=== PATIENT | male | born 1935 | race African-American/Black ===

== ENCOUNTER 2017-01-18 12:24 | Inpatient (IN) | payer MEDICARE, OTHER, MEDICAID ==
[~2017-01-18] VITALS: Ht 182.9 cm; Wt 105.0 kg
[~2017-01-18 12:24] MED LIST: ASPI81 PO; ATEN50TA PO; BISA10S PR; DIVA500T52 PO; FE PR; FINA5TAB41 PO; INSLAN SQ; INSNOV SQ; NIFE60TA71 PO; RISP2L PO; SERT50TA12 PO
[2017-01-18] MEDS ORDERED: SODIUM CHLORIDE 0.9% 1,000 ML IV ONE ×3 (12:45→21:45)
[2017-01-18] MEDS ORDERED: ACETAMINOPHEN 650 MG/ISO-OSM 65 ML IV ONE (12:45)
[2017-01-18] MEDS ORDERED: 0.9% SODIUM CHLORIDE 10 ML SYRINGE IVP PRN (12:45)
[2017-01-18] MEDS ORDERED: ACET325C PO (12:46)
[2017-01-18] MEDS ORDERED: RISP.5 PO (12:46)
[2017-01-18 13:28] LABS: HEMATOCRIT 34.1 % (41-53); HEMOGLOBIN 11.3 g/dL (13.5-17.5); MEAN CORPUSCULAR HEMOGLOBIN 24.8 pg (26.0-34.0); MEAN CORPUSCULAR VOLUME 75 fL (80-100); PLATELET COUNT (AUTO) 230 K/uL (150-450); RED BLOOD CELL COUNT(AUTO) 4.53 MIL/uL (4.50-5.90); RED CELL DISTRIBUTION WIDTH 17.5 % (11.5-14.5); WHITE BLOOD COUNT (AUTO) 16.1 K/uL (4.5-11.0)
[2017-01-18 13:37] LABS: ANION GAP 11 mmol/L (8-16); CALCIUM, TOTAL 8.8 mg/dL (8.8-10.5); CARBON DIOXIDE 28 mmol/L (22-29); CHLORIDE 104 mmol/L (98-107); CREATININE 1.98 mg/dL (0.60-1.30); GLOMERULAR FILTR. RATE CALC 39 mL/min (>60); POTASSIUM 4.5 mmol/L (3.5-5.1); SODIUM SERUM 143 mmol/L (136-145); UREA NITROGEN, BLOOD 36 mg/dL (7-18)
[2017-01-18 13:45] LABS: INR 1.2 (0.9-1.1); PROTHROMBIN TIME 12.7 SEC (9.4-11.6)
[2017-01-18 13:53] LABS: BAND NEUTROPHILS % (MANUAL) 19 % (1-5); LYMPHOCYTES % (MANUAL) 8 % (22-44); REACTIVE LYMPHOCYTES 1 % (0-0); TOTAL CELLS COUNTED 100
[2017-01-18 14:00] LABS: ALANINE AMINOTRANSFERASE 25 U/L (12-78); ALBUMIN 2.2 g/dL (3.4-5.0); ASPARTATE AMINOTRANSFERASE 153 U/L (15-37); BILIRUBIN,TOTAL 0.3 mg/dL (0.1-1.0); TOTAL PROTEIN, SERUM 7.4 g/dL (6.4-8.2)
[2017-01-18 14:24] LABS: LACTIC ACID 3.5 mmol/L (0.4-2.0)
[2017-01-18 14:44] LABS: ADD UA MICROSCOPIC YES; APPEARANCE,URINE CLEAR (CLEAR); GLUCOSE, URINE (UA) NEGATIVE (NEGATIVE); KETONES,URINE NEGATIVE (NEGATIVE); LEUKOCYTE ESTERASE ,URINE NEGATIVE (NEGATIVE); OCCULT BLOOD,URINE MODERATE (NEGATIVE); PH,URINE 5.5 (5.0-8.0); PROTEIN,URINE POS 1+ (NEGATIVE)
[2017-01-18 14:48] LABS: WBC,URINE 0-2 /HPF (0-5)
[2017-01-18 14:53] LABS: TROPONIN I 12.36 ng/mL (0.00-0.05)
[2017-01-18 14:54] LABS: PROCALCITONIN (PCT) 37.91 ng/mL (<0.50)
[2017-01-18 14:57] LABS: CREATINE KINASE MB 17.7 ng/mL (0-5); CREATINE KINASE, TOTAL 2911 U/L (39-308)
[2017-01-18 14:59] LABS: AMMONIA < 10 umol/L (11-32)
[2017-01-18] MEDS ORDERED: ASPIRIN 300 MG RECTAL SUPPOSITORY PR ONE (15:15)
[2017-01-18] MEDS ORDERED: VANCOMYCIN HCL 1 GM/D5% WATER 200 ML IV ONE ×2 (15:15→22:15)
[2017-01-18] MEDS ORDERED: PIPERACILLIN/TAZO 3.375 GM/D5W 50 ML IV ONE (15:15)
[2017-01-18 15:22] LABS: REFLEX LACTIC ACID? YES YES
[2017-01-18] MEDS ORDERED: ALBUTEROL SULFATE 5 MG/ML 20 ML NEB SOLN [BULK] NEB ONE (15:30)
[2017-01-18] MEDS ORDERED: IPRATROPIUM BROMIDE 0.5 MG/2.5 ML NEB SOLUTION NEB ONE (15:30)
[2017-01-18] MEDS ORDERED: 0.9% SODIUM CHLORIDE 5 ML NEB SOLUTION NEB ONE (15:45)
[2017-01-18 15:47] LABS: ABG A-A DIFF O2 147.8 mmHg (10-20.0); ABG BASE EXCESS -2.5 mmol/L (-2.0-3.0); ABG HCO3 22.8 mmol/L (22.0-26.0); ABG OXYHEMOGLOBIN 95.1 % (94.0-100.0); ABG PCO2 38 mmHg (35-45); ABG PH 7.389 (7.35-7.450); TEMPERATURE, FAHRENHEIT, BG 101.1 FAHREN (96.0-98.6)
[2017-01-18 15:51] LABS: ALLEN TEST, BLOOD GAS Positive
[2017-01-18] MEDS ORDERED: HEPARIN SODIUM 25000 UNITS/D5W 250 ML IV PRN (16:00)
[2017-01-18] MEDS ORDERED: HEPARIN SODIUM,PORCINE 5,000 UNITS/ML VIAL IVP PRN ×2 (16:00)
[2017-01-18] MEDS ORDERED: ACETAMINOPHEN 1000 MG/ISO-OSM 100 ML IV ONE (16:45)
[2017-01-18] MEDS ORDERED: KETOROLAC TROMETHAMINE 30 MG/ML VIAL IVP ONE (16:45)
[2017-01-18] MEDS ORDERED: ONDANSETRON HCL 4 MG/2 ML VIAL IVP PRN (17:45)
[2017-01-18] MEDS ORDERED: ACETAMINOPHEN 325 MG TABLET PO PRN (17:45)
[2017-01-18 18:44] LABS: INFLUENZA TYPE B NEGATIVE FOR TYPE B (NEGATIVE)
[2017-01-18 19:23] LABS: INR 1.1 (0.9-1.1)
[2017-01-18] MEDS ORDERED: BISACODYL 10 MG RECTAL RECTAL SUPPOSITORY PR PRN (21:45)
[2017-01-18] MEDS ORDERED: DEXTROSE 50%-WATER 25 GM/50 ML SYRINGE IVP PRN (21:45)
[2017-01-18] MEDS: ATORVASTATIN CALCIUM 40 MG TABLET PO SCH (21:45)
[2017-01-18 22:36] LABS: GLUCOSE COMMENT 1 Doctor Notified; GLUCOSE,POINT OF CARE 134 MG/DL (70-110)
[2017-01-19] MEDS: PIPERACILLIN/TAZO 3.375 GM/D5W 50 ML IV SCH ×4 (00:09→18:00)
[2017-01-19 02:05] LABS: INR 1.1 (0.9-1.1); PROTHROMBIN TIME 11.4 SEC (9.4-11.6)
[2017-01-19] MEDS: IPRATROPIUM BROMIDE 0.5 MG/2.5 ML NEB SOLUTION NEB PRN (02:35)
[2017-01-19] MEDS: ALBUTEROL SULFATE 2.5 MG/0.5 ML NEB SOLUTION NEB PRN ×2 (02:35→12:45)
[2017-01-19 06:46] LABS: GLUCOSE COMMENT 1 Doctor Notified; GLUCOSE,POINT OF CARE 198 MG/DL (70-110)
[2017-01-19 07:35] LABS: HEMATOCRIT 34.6 % (41-53); MEAN CORPUSCULAR HEMOGLOBIN 23.9 pg (26.0-34.0); MEAN CORPUSCULAR HGB CONC 31.7 G/dL (31.0-37.0); MEAN CORPUSCULAR VOLUME 75 fL (80-100); PLATELET COUNT (AUTO) 224 K/uL (150-450); RED BLOOD CELL COUNT(AUTO) 4.59 MIL/uL (4.50-5.90); RED CELL DISTRIBUTION WIDTH 17.6 % (11.5-14.5); WHITE BLOOD COUNT (AUTO) 19.9 K/uL (4.5-11.0)
[2017-01-19 07:46] LABS: CALCIUM, TOTAL 8.4 mg/dL (8.8-10.5); CREATININE 1.86 mg/dL (0.60-1.30); POTASSIUM 4.6 mmol/L (3.5-5.1)
[2017-01-19] MEDS: VANCOMYCIN HCL 1.5 GM in DEXTROSE 5%-WATER 250 ML IV SCH (07:49)
[2017-01-19 07:52] LABS: PROTHROMBIN TIME 10.8 SEC (9.4-11.6)
[2017-01-19] MEDS ORDERED: HEPARIN SODIUM,PORCINE 5,000 UNITS/ML VIAL IVP PRN ×2 (08:15)
[2017-01-19] MEDS ORDERED: HEPARIN SODIUM,PORCINE 5,000 UNITS/ML VIAL IVP ONE (08:30)
[2017-01-19] MEDS: PANTOPRAZOLE SODIUM 40 MG/VIAL IVP SCH (08:39)
[2017-01-19] MEDS: DOCUSATE SODIUM 100 MG CAPSULE PO SCH ×2 (08:42→21:00)
[2017-01-19] MEDS: ASPIRIN 81 MG CHEWABLE TABLET PO SCH (08:42)
[2017-01-19 09:19] LABS: BAND NEUTROPHILS % (MANUAL) 13 % (1-5); LYMPHOCYTES % (MANUAL) 7 % (22-44); TOTAL CELLS COUNTED 100
[2017-01-19 09:23] LABS: RBC MORPHOLOGY COMMENT ABNORMAL R
[2017-01-19] MEDS: ACETAMINOPHEN 325 MG TABLET PO PRN (10:03)
[2017-01-19 10:45] VITALS: BP 132/95
[2017-01-19] MEDS ORDERED: SODIUM CHLORIDE 0.9% 250 ML IV ONE (11:09)
[2017-01-19 12:00] VITALS: BP 91/46
[2017-01-19 12:02] LABS: ABG A-A DIFF O2 569.8 mmHg (10-20.0); ABG BASE EXCESS -1.7 mmol/L (-2.0-3.0); ABG HCO3 23.6 mmol/L (22.0-26.0); ABG OXYHEMOGLOBIN 97.3 % (94.0-100.0); ABG PCO2 34 mmHg (35-45); ABG PH 7.437 (7.35-7.450); TEMPERATURE, FAHRENHEIT, BG 101.7 FAHREN (96.0-98.6)
[2017-01-19 12:07] LABS: ALLEN TEST, BLOOD GAS Positive
[2017-01-19] MEDS ORDERED: 0.9% SODIUM CHLORIDE 5 ML NEB SOLUTION NEB ONE (12:44)
[2017-01-19] MEDS: HEPARIN SODIUM 25000 UNITS/D5W 250 ML IV PRN (14:55)
[2017-01-19 16:00] VITALS: BP 104/59
[2017-01-19 20:00] VITALS: BP 106/61
[2017-01-19] MEDS: ATORVASTATIN CALCIUM 40 MG TABLET PO SCH (21:00)
[2017-01-19] MEDS: INSULIN ASPART 100 UNITS/ML SQ PRN (21:41)
[2017-01-19] MEDS ORDERED: SODIUM CHLORIDE 0.9% 500 ML IV ONE (21:47)
[2017-01-20] VITALS: BP 128/72
[2017-01-20] MEDS: PIPERACILLIN/TAZO 3.375 GM/D5W 50 ML IV SCH ×4 (00:38→18:14)
[2017-01-20] MEDS: HEPARIN SODIUM 25000 UNITS/D5W 250 ML IV PRN (03:52)
[2017-01-20 04:00] VITALS: BP 133/75
[2017-01-20 04:42] LABS: GLUCOSE,POINT OF CARE 166 MG/DL (70-110)
[2017-01-20 04:42] LABS: GLUCOSE,POINT OF CARE 189 MG/DL (70-110)
[2017-01-20 04:43] LABS: GLUCOSE COMMENT 1 Received Meds; GLUCOSE,POINT OF CARE 178 MG/DL (70-110)
[2017-01-20 05:32] LABS: HEMOGLOBIN 11.7 g/dL (13.5-17.5); MEAN CORPUSCULAR HGB CONC 32.6 G/dL (31.0-37.0); MEAN CORPUSCULAR VOLUME 74 fL (80-100); PLATELET COUNT (AUTO) 254 K/uL (150-450); RED BLOOD CELL COUNT(AUTO) 4.88 MIL/uL (4.50-5.90); RED CELL DISTRIBUTION WIDTH 17.4 % (11.5-14.5); WHITE BLOOD COUNT (AUTO) 26.2 K/uL (4.5-11.0)
[2017-01-20 06:00] LABS: B-TYPE NATRIURETIC PEPTIDE 694 pg/mL (0-100)
[2017-01-20 06:15] LABS: ANION GAP 10 mmol/L (8-16); CALCIUM, TOTAL 8.5 mg/dL (8.8-10.5); CARBON DIOXIDE 26 mmol/L (22-29); CHLORIDE 106 mmol/L (98-107); CREATININE 1.58 mg/dL (0.60-1.30); GLOMERULAR FILTR. RATE CALC 51 mL/min (>60); POTASSIUM 4.6 mmol/L (3.5-5.1); SODIUM SERUM 142 mmol/L (136-145); UREA NITROGEN, BLOOD 44 mg/dL (7-18)
[2017-01-20] MEDS: INSULIN ASPART 100 UNITS/ML SQ PRN ×4 (06:16→22:41)
[2017-01-20 06:18] LABS: CREATINE KINASE, TOTAL 1411 U/L (39-308)
[2017-01-20 07:25] LABS: BAND NEUTROPHILS % (MANUAL) 6 % (1-5); LYMPHOCYTES % (MANUAL) 11 % (22-44); TOTAL CELLS COUNTED 100
[2017-01-20 07:26] LABS: RBC MORPHOLOGY COMMENT ABNORMAL RBC MORPH
[2017-01-20 07:27] LABS: GLUCOSE COMMENT 1 Received Meds; GLUCOSE,POINT OF CARE 169 MG/DL (70-110)
[2017-01-20 08:00] VITALS: BP 128/73
[2017-01-20] MEDS: VANCOMYCIN HCL 1.5 GM in DEXTROSE 5%-WATER 250 ML IV SCH (08:37)
[2017-01-20] MEDS: DOCUSATE SODIUM 100 MG CAPSULE PO SCH ×2 (08:37→21:53)
[2017-01-20] MEDS: PANTOPRAZOLE SODIUM 40 MG/VIAL IVP SCH (08:37)
[2017-01-20] MEDS: ASPIRIN 81 MG CHEWABLE TABLET PO SCH (08:38)
[2017-01-20] MEDS: ACETAMINOPHEN 325 MG TABLET PO PRN (08:51)
[2017-01-20 12:00] VITALS: BP 140/68
[2017-01-20 13:36] LABS: GLUCOSE COMMENT 1 Received Meds; GLUCOSE,POINT OF CARE 208 MG/DL (70-110)
[2017-01-20] MEDS: IPRATROPIUM BROMIDE 0.5 MG/2.5 ML NEB SOLUTION NEB PRN (13:39)
[2017-01-20] MEDS: ALBUTEROL SULFATE 2.5 MG/0.5 ML NEB SOLUTION NEB PRN (13:39)
[2017-01-20 16:00] VITALS: BP 153/84
[2017-01-20 20:00] VITALS: BP 144/76
[2017-01-20] MEDS: ATORVASTATIN CALCIUM 40 MG TABLET PO SCH (21:53)
[2017-01-21] VITALS: BP 113/55
[2017-01-21] MEDS: PIPERACILLIN/TAZO 3.375 GM/D5W 50 ML IV SCH ×3 (00:38→13:04)
[2017-01-21 01:16] LABS: GLUCOSE COMMENT 1 Received Meds; GLUCOSE,POINT OF CARE 198 MG/DL (70-110)
[2017-01-21 01:16] LABS: GLUCOSE COMMENT 1 Received Meds; GLUCOSE,POINT OF CARE 238 MG/DL (70-110)
[2017-01-21] MEDS ORDERED: SODIUM CHLORIDE 0.9% 250 ML IV ONE (03:50)
[2017-01-21 04:00] VITALS: BP 125/69
[2017-01-21 06:20] LABS: CALCIUM, TOTAL 8.3 mg/dL (8.8-10.5); CREATININE 1.68 mg/dL (0.60-1.30)
[2017-01-21] MEDS: INSULIN ASPART 100 UNITS/ML SQ PRN ×3 (06:51→18:24)
[2017-01-21 08:00] VITALS: BP 129/76
[2017-01-21 08:27] LABS: GLUCOSE COMMENT 1 Received Meds; GLUCOSE,POINT OF CARE 273 MG/DL (70-110)
[2017-01-21] MEDS: PANTOPRAZOLE SODIUM 40 MG/VIAL IVP SCH (08:54)
[2017-01-21] MEDS: VANCOMYCIN HCL 1.5 GM in DEXTROSE 5%-WATER 250 ML IV SCH (08:54)
[2017-01-21] MEDS: DOCUSATE SODIUM 100 MG CAPSULE PO SCH ×2 (08:55→21:00)
[2017-01-21] MEDS: ASPIRIN 81 MG CHEWABLE TABLET PO SCH (08:55)
[2017-01-21] MEDS: HEPARIN SODIUM 25000 UNITS/D5W 250 ML IV PRN (08:56)
[2017-01-21] MEDS ORDERED: SODIUM CHLORIDE 0.9% 500 ML IV ONE ×2 (10:15→12:30)
[2017-01-21 11:09] LABS: ABG A-A DIFF O2 128.9 mmHg (10-20.0); ABG BASE EXCESS 1.2 mmol/L (-2.0-3.0); ABG OXYHEMOGLOBIN 96.6 % (94.0-100.0); ABG PCO2 29 mmHg (35-45); ABG PH 7.535 (7.35-7.450)
[2017-01-21 11:10] LABS: ALLEN TEST, BLOOD GAS Positive; IPAP, BG 16 cm H2O
[2017-01-21 12:00] VITALS: BP 131/71
[2017-01-21 13:05] LABS: HEMATOCRIT 29.7 % (41-53); HEMOGLOBIN 9.8 g/dL (13.5-17.5); MEAN CORPUSCULAR HEMOGLOBIN 24.3 pg (26.0-34.0); MEAN CORPUSCULAR HGB CONC 32.9 G/dL (31.0-37.0); MEAN CORPUSCULAR VOLUME 74 fL (80-100); PLATELET COUNT (AUTO) 308 K/uL (150-450); RED BLOOD CELL COUNT(AUTO) 4.02 MIL/uL (4.50-5.90); RED CELL DISTRIBUTION WIDTH 17.3 % (11.5-14.5); WHITE BLOOD COUNT (AUTO) 20.5 K/uL (4.5-11.0)
[2017-01-21] MEDS ORDERED: SODIUM CHLORIDE 0.9% 1,000 ML IV ONE (13:05)
[2017-01-21 13:26] LABS: B-TYPE NATRIURETIC PEPTIDE 1170 pg/mL (0-100)
[2017-01-21 13:27] LABS: GLUCOSE COMMENT 1 Received Meds; GLUCOSE,POINT OF CARE 349 MG/DL (70-110)
[2017-01-21 13:28] LABS: BAND NEUTROPHILS % (MANUAL) 17 % (1-5); LYMPHOCYTES % (MANUAL) 11 % (22-44); RBC MORPHOLOGY COMMENT ABNORMAL R; TOTAL CELLS COUNTED 100
[2017-01-21 13:36] LABS: LACTIC ACID 2.1 mmol/L (0.4-2.0)
[2017-01-21 14:51] LABS: REFLEX LACTIC ACID? YES YES
[2017-01-21] MEDS ORDERED: BUMETANIDE 0.25 MG/ML 10 ML VIAL IVP ONE ×2 (15:15→23:45)
[2017-01-21 16:00] VITALS: BP 145/78
[2017-01-21 17:57] LABS: ADD UA MICROSCOPIC YES; APPEARANCE,URINE CLOUDY (CLEAR); GLUCOSE, URINE (UA) NEGATIVE (NEGATIVE); KETONES,URINE NEGATIVE (NEGATIVE); LEUKOCYTE ESTERASE ,URINE NEGATIVE (NEGATIVE); OCCULT BLOOD,URINE SMALL (NEGATIVE); PROTEIN,URINE TRACE (NEGATIVE)
[2017-01-21 18:02] LABS: RBC,URINE 0-2 /HPF (0-2); WBC,URINE 0-2 /HPF (0-5)
[2017-01-21 18:03] LABS: SQUAMOUS EPITHELIAL CELL,UR Rare /LPF (None Seen)
[2017-01-21] MEDS: PENICILLIN G POTASSIUM 3 MILUNITS in DEXTROSE 5%-WATER 50 ML IV SCH ×2 (18:24→22:39)
[2017-01-21] MEDS: CLINDAMYCIN 900 MG/D5% WATER 50 ML IV SCH (18:24)
[2017-01-21 19:02] LABS: GLUCOSE COMMENT 1 Received Meds; GLUCOSE,POINT OF CARE 396 MG/DL (70-110)
[2017-01-21] MEDS ORDERED: DEXTROSE 50%-WATER 25 GM/50 ML SYRINGE IVP PRN (19:30)
[2017-01-21] MEDS ORDERED: INSULIN REGULAR, HUMAN 100 UNITS/ML SQ PRN (19:30)
[2017-01-21 20:00] VITALS: BP 124/71
[2017-01-21] MEDS: ATORVASTATIN CALCIUM 40 MG TABLET PO SCH (21:34)
[2017-01-21] MEDS: HEPARIN SODIUM,PORCINE 5,000 UNITS/ML VIAL SQ SCH (21:34)
[2017-01-22] VITALS: BP 157/89
[2017-01-22] MEDS ORDERED: DEXTROSE 50%-WATER 25 GM/50 ML SYRINGE IVP PRN (00:45)
[2017-01-22] MEDS: INSULIN REGULAR, HUMAN 100 UNITS/ML SQ PRN ×5 (00:51→17:11)
[2017-01-22] MEDS: CLINDAMYCIN 900 MG/D5% WATER 50 ML IV SCH ×3 (01:57→17:11)
[2017-01-22] MEDS: PENICILLIN G POTASSIUM 3 MILUNITS in DEXTROSE 5%-WATER 50 ML IV SCH ×6 (02:46→23:32)
[2017-01-22 04:00] VITALS: BP 142/78
[2017-01-22 05:30] LABS: ANION GAP 9 mmol/L (8-16); CALCIUM, TOTAL 8.5 mg/dL (8.8-10.5); CARBON DIOXIDE 28 mmol/L (22-29); CHLORIDE 106 mmol/L (98-107); CREATINE KINASE MB 1.2 ng/mL (0-5); CREATINE KINASE, TOTAL 255 U/L (39-308); CREATININE 1.64 mg/dL (0.60-1.30); GLOMERULAR FILTR. RATE CALC 49 mL/min (>60); POTASSIUM 3.8 mmol/L (3.5-5.1); SODIUM SERUM 143 mmol/L (136-145); UREA NITROGEN, BLOOD 51 mg/dL (7-18)
[2017-01-22 06:52] LABS: GLUCOSE COMMENT 1 Doctor Notified; GLUCOSE,POINT OF CARE 440 MG/DL (70-110)
[2017-01-22 06:53] LABS: GLUCOSE COMMENT 1 Doctor Notified; GLUCOSE,POINT OF CARE 403 MG/DL (70-110)
[2017-01-22 08:00] VITALS: BP 142/75
[2017-01-22] MEDS ORDERED: INSULIN DETEMIR 100 UNITS/ML SQ SCH (09:00)
[2017-01-22] MEDS: DOCUSATE SODIUM 100 MG CAPSULE PO SCH ×2 (09:00→21:00)
[2017-01-22] MEDS: PANTOPRAZOLE SODIUM 40 MG/VIAL IVP SCH (10:00)
[2017-01-22] MEDS: HEPARIN SODIUM,PORCINE 5,000 UNITS/ML VIAL SQ SCH ×2 (10:00→21:20)
[2017-01-22] MEDS: VITAMIN B COMP/VIT C/FOLIC ACID CAPSULE PO SCH (10:01)
[2017-01-22] MEDS: ASPIRIN 81 MG CHEWABLE TABLET PO SCH (10:01)
[2017-01-22 12:00] VITALS: BP 135/72
[2017-01-22] MEDS: BUMETANIDE 0.25 MG/ML 10 ML VIAL IVP SCH ×3 (12:08→21:20)
[2017-01-22 15:52] LABS: GLUCOSE,POINT OF CARE 420 MG/DL (70-110)
[2017-01-22 15:52] LABS: GLUCOSE COMMENT 1 Received Meds; GLUCOSE,POINT OF CARE 418 MG/DL (70-110)
[2017-01-22 16:00] VITALS: BP 158/85
[2017-01-22 18:06] LABS: GLUCOSE COMMENT 1 Received Meds; GLUCOSE,POINT OF CARE 411 MG/DL (70-110)
[2017-01-22 20:00] VITALS: BP 148/79
[2017-01-22] MEDS: INSULIN DETEMIR 100 UNITS/ML SQ SCH (21:24)
[2017-01-22] MEDS ORDERED: SODIUM CHLORIDE 0.9% 250 ML IV ONE (22:31)
[2017-01-22] MEDS: ATORVASTATIN CALCIUM 40 MG TABLET PO SCH (22:35)
[2017-01-23] VITALS: BP 155/77
[2017-01-23] MEDS: INSULIN REGULAR, HUMAN 100 UNITS/ML SQ PRN ×4 (00:03→22:19)
[2017-01-23] MEDS: CLINDAMYCIN 900 MG/D5% WATER 50 ML IV SCH ×3 (02:07→17:30)
[2017-01-23] MEDS: PENICILLIN G POTASSIUM 3 MILUNITS in DEXTROSE 5%-WATER 50 ML IV SCH ×6 (02:45→23:03)
[2017-01-23 04:00] VITALS: BP_SYST 110; BP_SYST 139; BP_DIAS 48; BP_DIAS 71
[2017-01-23 05:34] LABS: CALCIUM, TOTAL 8.6 mg/dL (8.8-10.5); CREATININE 1.4 mg/dL (0.60-1.30); MAGNESIUM 1.7 mg/dL (1.80-2.40); POTASSIUM 3.5 mmol/L (3.5-5.1)
[2017-01-23 06:52] LABS: HEMATOCRIT 30.8 % (41-53); HEMOGLOBIN 10.1 g/dL (13.5-17.5); MEAN CORPUSCULAR HEMOGLOBIN 24.4 pg (26.0-34.0); MEAN CORPUSCULAR HGB CONC 32.6 G/dL (31.0-37.0); MEAN CORPUSCULAR VOLUME 75 fL (80-100); PLATELET COUNT (AUTO) 340 K/uL (150-450); RED BLOOD CELL COUNT(AUTO) 4.13 MIL/uL (4.50-5.90); RED CELL DISTRIBUTION WIDTH 17.6 % (11.5-14.5)
[2017-01-23 07:06] LABS: WHITE BLOOD COUNT (AUTO) 31.8 K/uL (4.5-11.0)
[2017-01-23 08:00] VITALS: BP 149/71
[2017-01-23] MEDS: BUMETANIDE 0.25 MG/ML 10 ML VIAL IVP SCH ×3 (09:02→21:49)
[2017-01-23] MEDS: PANTOPRAZOLE SODIUM 40 MG/VIAL IVP SCH (09:04)
[2017-01-23] MEDS: HEPARIN SODIUM,PORCINE 5,000 UNITS/ML VIAL SQ SCH ×2 (09:04→21:49)
[2017-01-23] MEDS: ASPIRIN 81 MG CHEWABLE TABLET PO SCH (09:06)
[2017-01-23] MEDS: INSULIN DETEMIR 100 UNITS/ML SQ SCH ×2 (09:33→21:57)
[2017-01-23] MEDS: VITAMIN B COMP/VIT C/FOLIC ACID CAPSULE PO SCH (09:36)
[2017-01-23 09:57] LABS: GLUCOSE COMMENT 1 Received Meds; GLUCOSE,POINT OF CARE 257 MG/DL (70-110)
[2017-01-23 10:17] LABS: GLUCOSE COMMENT 1 Received Meds; GLUCOSE,POINT OF CARE 282 MG/DL (70-110)
[2017-01-23 10:21] LABS: GLUCOSE,POINT OF CARE 342 MG/DL (70-110)
[2017-01-23 11:14] LABS: BAND NEUTROPHILS % (MANUAL) 4 % (1-5); LYMPHOCYTES % (MANUAL) 10 % (22-44); TOTAL CELLS COUNTED 100
[2017-01-23 11:17] LABS: RBC MORPHOLOGY COMMENT ABNORMAL R
[2017-01-23 12:00] VITALS: BP 163/77
[2017-01-23 15:41] LABS: GLUCOSE COMMENT 1 Received Meds; GLUCOSE,POINT OF CARE 258 MG/DL (70-110)
[2017-01-23 15:41] LABS: GLUCOSE,POINT OF CARE 392 MG/DL (70-110)
[2017-01-23 15:47] LABS: GLUCOSE,POINT OF CARE 348 MG/DL (70-110)
[2017-01-23 16:00] VITALS: BP 107/41
[2017-01-23 20:00] VITALS: BP 135/77
[2017-01-23] MEDS ORDERED: SODIUM CHLORIDE 0.9% 250 ML IV ONE (21:46)
[2017-01-23] MEDS: DOCUSATE SODIUM 100 MG CAPSULE PO SCH (21:48)
[2017-01-23] MEDS: ATORVASTATIN CALCIUM 40 MG TABLET PO SCH (21:49)
[2017-01-24] VITALS (7 sets, daily range): BP systolic 106–169; BP diastolic 56–84
[2017-01-24] MEDS: INSULIN REGULAR, HUMAN 100 UNITS/ML SQ PRN ×4 (01:01→18:19)
[2017-01-24] MEDS: CLINDAMYCIN 900 MG/D5% WATER 50 ML IV SCH ×3 (01:03→17:47)
[2017-01-24] MEDS ORDERED: SODIUM CHLORIDE 0.9% 250 ML IV ONE (02:25)
[2017-01-24] MEDS: PENICILLIN G POTASSIUM 3 MILUNITS in DEXTROSE 5%-WATER 50 ML IV SCH ×6 (02:28→21:54)
[2017-01-24 06:20] LABS: BASOPHILS % (AUTO) 0.2 % (0.0-2.0); EOSINOPHILS % (AUTO) 0.9 % (1.0-6.0); HEMATOCRIT 34.7 % (41-53); HEMOGLOBIN 10.7 g/dL (13.5-17.5); MEAN CORPUSCULAR HEMOGLOBIN 23.4 pg (26.0-34.0); MEAN CORPUSCULAR HGB CONC 30.9 G/dL (31.0-37.0); MEAN CORPUSCULAR VOLUME 76 fL (80-100); MONOCYTES # (AUTO) 1.4 K/uL (0.1-1.0); MONOCYTES % (AUTO) 4.7 % (2.0-9.0); NEUTROPHILS # (AUTO) 25.5 K/uL (1.8-7.7); NEUTROPHILS % (AUTO) 84.2 % (40.0-70.0); PLATELET COUNT (AUTO) 401 K/uL (150-450); RED BLOOD CELL COUNT(AUTO) 4.59 MIL/uL (4.50-5.90); RED CELL DISTRIBUTION WIDTH 17.4 % (11.5-14.5)
[2017-01-24 06:52] LABS: ANION GAP 7 mmol/L (8-16); CARBON DIOXIDE 36 mmol/L (22-29); CHLORIDE 108 mmol/L (98-107); CREATINE KINASE MB 0.5 ng/mL (0-5); CREATINE KINASE, TOTAL 140 U/L (39-308); CREATININE 1.46 mg/dL (0.60-1.30); GLOMERULAR FILTR. RATE CALC 56 mL/min (>60); POTASSIUM 3.8 mmol/L (3.5-5.1); SODIUM SERUM 151 mmol/L (136-145); UREA NITROGEN, BLOOD 45 mg/dL (7-18)
[2017-01-24 06:56] LABS: WHITE BLOOD COUNT (AUTO) 30.3 K/uL (4.5-11.0)
[2017-01-24] MEDS: BUMETANIDE 0.25 MG/ML 10 ML VIAL IVP SCH ×4 (08:12→20:22)
[2017-01-24] MEDS: HEPARIN SODIUM,PORCINE 5,000 UNITS/ML VIAL SQ SCH ×2 (08:13→20:22)
[2017-01-24] MEDS: DOCUSATE SODIUM 100 MG CAPSULE PO SCH ×2 (08:13→20:22)
[2017-01-24] MEDS: PANTOPRAZOLE SODIUM 40 MG/VIAL IVP SCH (08:14)
[2017-01-24] MEDS: VITAMIN B COMP/VIT C/FOLIC ACID CAPSULE PO SCH (08:20)
[2017-01-24] MEDS: ASPIRIN 81 MG CHEWABLE TABLET PO SCH (08:20)
[2017-01-24] MEDS: INSULIN DETEMIR 100 UNITS/ML SQ SCH ×2 (08:26→20:25)
[2017-01-24 08:47] LABS: GLUCOSE COMMENT 1 Received Meds; GLUCOSE,POINT OF CARE 387 MG/DL (70-110)
[2017-01-24 08:47] LABS: GLUCOSE,POINT OF CARE 306 MG/DL (70-110)
[2017-01-24 08:47] LABS: GLUCOSE COMMENT 1 Received Meds; GLUCOSE,POINT OF CARE 387 MG/DL (70-110)
[2017-01-24 09:02] LABS: GLUCOSE COMMENT 1 Received Meds; GLUCOSE,POINT OF CARE 237 MG/DL (70-110)
[2017-01-24 09:02] LABS: RBC MORPHOLOGY COMMENT ABNORMAL RBC MORPH
[2017-01-24] MEDS ORDERED: DEXTROSE 5%-WATER 1,000 ML IV SCH (11:45)
[2017-01-24 12:56] LABS: GLUCOSE,POINT OF CARE 197 MG/DL (70-110)
[2017-01-24 18:41] LABS: CALCIUM, TOTAL 8.7 mg/dL (8.8-10.5); CREATININE 1.46 mg/dL (0.60-1.30); POTASSIUM 3.7 mmol/L (3.5-5.1)
[2017-01-24] MEDS: ACETAMINOPHEN 325 MG TABLET PO PRN (20:22)
[2017-01-24] MEDS: ATORVASTATIN CALCIUM 40 MG TABLET PO SCH (20:22)
[2017-01-25] VITALS (7 sets, daily range): BP systolic 114–153; BP diastolic 57–82
[2017-01-25 00:32] LABS: GLUCOSE,POINT OF CARE 236 MG/DL (70-110)
[2017-01-25 00:32] LABS: GLUCOSE COMMENT 1 Received Meds; GLUCOSE,POINT OF CARE 241 MG/DL (70-110)
[2017-01-25 00:32] LABS: GLUCOSE,POINT OF CARE 187 MG/DL (70-110)
[2017-01-25] MEDS: INSULIN REGULAR, HUMAN 100 UNITS/ML SQ PRN ×4 (01:09→17:33)
[2017-01-25] MEDS ORDERED: SODIUM CHLORIDE 0.9% 250 ML IV ONE (01:46)
[2017-01-25] MEDS: CLINDAMYCIN 900 MG/D5% WATER 50 ML IV SCH ×3 (02:14→17:32)
[2017-01-25] MEDS: PENICILLIN G POTASSIUM 3 MILUNITS in DEXTROSE 5%-WATER 50 ML IV SCH ×6 (02:54→22:15)
[2017-01-25] MEDS: ACETAMINOPHEN 325 MG TABLET PO PRN (04:01)
[2017-01-25] MEDS ORDERED: HYDROmorphone 2 MG/ML SYRINGE IM ONE (04:30)
[2017-01-25 05:45] LABS: ANION GAP 6 mmol/L (8-16); CALCIUM, TOTAL 8.4 mg/dL (8.8-10.5); CARBON DIOXIDE 33 mmol/L (22-29); CHLORIDE 105 mmol/L (98-107); CREATININE 1.36 mg/dL (0.60-1.30); GLOMERULAR FILTR. RATE CALC > 60 mL/min (>60); SODIUM SERUM 144 mmol/L (136-145); UREA NITROGEN, BLOOD 41 mg/dL (7-18)
[2017-01-25 06:27] LABS: GLUCOSE COMMENT 1 Received Meds; GLUCOSE,POINT OF CARE 370 MG/DL (70-110)
[2017-01-25 06:27] LABS: GLUCOSE COMMENT 1 Received Meds; GLUCOSE,POINT OF CARE 349 MG/DL (70-110)
[2017-01-25 06:44] LABS: BASOPHILS # (AUTO) 0.03 K/uL (0.00-0.20); BASOPHILS % (AUTO) 0.2 % (0.0-2.0); EOSINOPHILS # (AUTO) 0.42 K/uL (0.00-0.70); EOSINOPHILS % (AUTO) 1.85 % (1.0-6.0); HEMATOCRIT 30.9 % (41-53); LYMPHOCYTES % (AUTO) 13.1 % (22.0-44.0); MEAN CORPUSCULAR HGB CONC 32.3 G/dL (31.0-37.0); MEAN CORPUSCULAR VOLUME 74 fL (80-100); MONOCYTES # (AUTO) 0.7 K/uL (0.1-1.0); MONOCYTES % (AUTO) 3.1 % (2.0-9.0); NEUTROPHILS # (AUTO) 18.4 K/uL (1.8-7.7); NEUTROPHILS % (AUTO) 81.8 % (40.0-70.0); PLATELET COUNT (AUTO) 409 K/uL (150-450); RED BLOOD CELL COUNT(AUTO) 4.16 MIL/uL (4.50-5.90); RED CELL DISTRIBUTION WIDTH 17.5 % (11.5-14.5); WHITE BLOOD COUNT (AUTO) 22.5 K/uL (4.5-11.0)
[2017-01-25] MEDS ORDERED: MAGNESIUM SULFATE 1 GM in DEXTROSE 5%-WATER 50 ML IV ONE (07:30)
[2017-01-25] MEDS ORDERED: POTASSIUM CHLORIDE 20 MEQ ER TABLET PO ONE (07:30)
[2017-01-25] MEDS: INSULIN DETEMIR 100 UNITS/ML SQ SCH ×2 (08:10→21:19)
[2017-01-25] MEDS: DOCUSATE SODIUM 100 MG CAPSULE PO SCH ×2 (08:11→21:18)
[2017-01-25] MEDS: BUMETANIDE 0.25 MG/ML 10 ML VIAL IVP SCH ×3 (08:12→21:18)
[2017-01-25] MEDS: HEPARIN SODIUM,PORCINE 5,000 UNITS/ML VIAL SQ SCH ×2 (08:12→21:18)
[2017-01-25] MEDS: PANTOPRAZOLE SODIUM 40 MG/VIAL IVP SCH (08:12)
[2017-01-25] MEDS: ASPIRIN 81 MG CHEWABLE TABLET PO SCH (08:12)
[2017-01-25] MEDS: VITAMIN B COMP/VIT C/FOLIC ACID CAPSULE PO SCH (08:13)
[2017-01-25 10:13] LABS: RBC MORPHOLOGY COMMENT ABNORMAL RBC MORPH
[2017-01-25 18:31] LABS: GLUCOSE COMMENT 1 Received Meds; GLUCOSE,POINT OF CARE 422 MG/DL (70-110)
[2017-01-25 18:31] LABS: GLUCOSE COMMENT 1 Received Meds; GLUCOSE,POINT OF CARE 352 MG/DL (70-110)
[2017-01-25] MEDS: MORPHINE SULFATE 2 MG/ML SYRINGE IVP PRN (20:16)
[2017-01-25] MEDS: ATORVASTATIN CALCIUM 40 MG TABLET PO SCH (21:18)
[2017-01-26] VITALS: BP 131/66
[2017-01-26] MEDS: INSULIN REGULAR, HUMAN 100 UNITS/ML SQ PRN ×5 (00:27→23:56)
[2017-01-26] MEDS: PENICILLIN G POTASSIUM 3 MILUNITS in DEXTROSE 5%-WATER 50 ML IV SCH ×6 (02:22→23:12)
[2017-01-26 04:00] VITALS: BP 127/64
[2017-01-26] MEDS ORDERED: SODIUM CHLORIDE 0.9% 250 ML IV ONE (04:00)
[2017-01-26] MEDS: MORPHINE SULFATE 2 MG/ML SYRINGE IVP PRN (04:14)
[2017-01-26 05:30] LABS: BASOPHILS % (AUTO) 0.2 % (0.0-2.0); EOSINOPHILS % (AUTO) 1.5 % (1.0-6.0); HEMATOCRIT 33.1 % (41-53); HEMOGLOBIN 10.2 g/dL (13.5-17.5); LYMPHOCYTES # (AUTO) 3.3 K/uL (1.0-4.8); LYMPHOCYTES % (AUTO) 17.4 % (22.0-44.0); MEAN CORPUSCULAR HEMOGLOBIN 23.2 pg (26.0-34.0); MEAN CORPUSCULAR HGB CONC 30.8 G/dL (31.0-37.0); MEAN CORPUSCULAR VOLUME 76 fL (80-100); NEUTROPHILS # (AUTO) 14.6 K/uL (1.8-7.7); NEUTROPHILS % (AUTO) 75.9 % (40.0-70.0); PLATELET COUNT (AUTO) 463 K/uL (150-450); RED BLOOD CELL COUNT(AUTO) 4.38 MIL/uL (4.50-5.90); WHITE BLOOD COUNT (AUTO) 19.2 K/uL (4.5-11.0)
[2017-01-26 06:32] LABS: GLUCOSE COMMENT 1 Received Meds; GLUCOSE,POINT OF CARE 394 MG/DL (70-110)
[2017-01-26 06:32] LABS: GLUCOSE COMMENT 1 Received Meds; GLUCOSE,POINT OF CARE 389 MG/DL (70-110)
[2017-01-26 06:37] LABS: GLUCOSE COMMENT 1 Received Meds; GLUCOSE,POINT OF CARE 313 MG/DL (70-110)
[2017-01-26 08:00] VITALS: BP 125/67
[2017-01-26 08:36] LABS: RBC MORPHOLOGY COMMENT ABNORMAL RBC MORPH
[2017-01-26 09:30] LABS: CALCIUM, TOTAL 8.7 mg/dL (8.8-10.5); CREATININE 1.51 mg/dL (0.60-1.30); POTASSIUM 4.8 mmol/L (3.5-5.1)
[2017-01-26] MEDS: BUMETANIDE 0.25 MG/ML 10 ML VIAL IVP SCH (10:01)
[2017-01-26] MEDS: DOCUSATE SODIUM 100 MG CAPSULE PO SCH ×2 (10:03→21:01)
[2017-01-26] MEDS: ASPIRIN 81 MG CHEWABLE TABLET PO SCH (10:03)
[2017-01-26] MEDS: VITAMIN B COMP/VIT C/FOLIC ACID CAPSULE PO SCH (10:03)
[2017-01-26] MEDS: HEPARIN SODIUM,PORCINE 5,000 UNITS/ML VIAL SQ SCH ×2 (10:03→21:01)
[2017-01-26] MEDS: PANTOPRAZOLE SODIUM 40 MG/VIAL IVP SCH (10:03)
[2017-01-26] MEDS: INSULIN DETEMIR 100 UNITS/ML SQ SCH ×2 (10:06→21:03)
[2017-01-26 12:00] VITALS: BP 125/67
[2017-01-26 15:47] LABS: GLUCOSE COMMENT 1 Received Meds; GLUCOSE,POINT OF CARE 371 MG/DL (70-110)
[2017-01-26 16:00] VITALS: BP 123/72
[2017-01-26 20:00] VITALS: BP 115/62
[2017-01-26] MEDS: ATORVASTATIN CALCIUM 40 MG TABLET PO SCH (21:01)
[2017-01-27] VITALS (7 sets, daily range): BP systolic 141–188; BP diastolic 68–96
[2017-01-27] MEDS: PENICILLIN G POTASSIUM 3 MILUNITS in DEXTROSE 5%-WATER 50 ML IV SCH ×6 (02:11→23:10)
[2017-01-27] MEDS: INSULIN REGULAR, HUMAN 100 UNITS/ML SQ PRN ×5 (05:50→21:28)
[2017-01-27 07:22] LABS: COMPLEMENT C3 154 mg/dL (82-167); COMPLEMENT C4 35 mg/dL (14-44)
[2017-01-27 08:05] LABS: BASOPHILS % (AUTO) 0.1 % (0.0-2.0); EOSINOPHILS % (AUTO) 1.4 % (1.0-6.0); HEMATOCRIT 31.9 % (41-53); LYMPHOCYTES # (AUTO) 2.9 K/uL (1.0-4.8); LYMPHOCYTES % (AUTO) 17.7 % (22.0-44.0); MEAN CORPUSCULAR HEMOGLOBIN 23.9 pg (26.0-34.0); MEAN CORPUSCULAR HGB CONC 31.5 G/dL (31.0-37.0); MEAN CORPUSCULAR VOLUME 76 fL (80-100); MONOCYTES # (AUTO) 0.8 K/uL (0.1-1.0); MONOCYTES % (AUTO) 4.9 % (2.0-9.0); NEUTROPHILS # (AUTO) 12.5 K/uL (1.8-7.7); NEUTROPHILS % (AUTO) 75.9 % (40.0-70.0); PLATELET COUNT (AUTO) 468 K/uL (150-450); RED CELL DISTRIBUTION WIDTH 16.8 % (11.5-14.5); WHITE BLOOD COUNT (AUTO) 16.4 K/uL (4.5-11.0)
[2017-01-27 08:19] LABS: ANION GAP 4 mmol/L (8-16); CALCIUM, TOTAL 8.5 mg/dL (8.8-10.5); CARBON DIOXIDE 32 mmol/L (22-29); CHLORIDE 108 mmol/L (98-107); CREATININE 1.23 mg/dL (0.60-1.30); GLOMERULAR FILTR. RATE CALC > 60 mL/min (>60); POTASSIUM 4.4 mmol/L (3.5-5.1); SODIUM SERUM 144 mmol/L (136-145); UREA NITROGEN, BLOOD 31 mg/dL (7-18)
[2017-01-27] MEDS: HEPARIN SODIUM,PORCINE 5,000 UNITS/ML VIAL SQ SCH ×2 (08:45→21:17)
[2017-01-27] MEDS: ASPIRIN 81 MG CHEWABLE TABLET PO SCH (08:45)
[2017-01-27] MEDS: PANTOPRAZOLE SODIUM 40 MG/VIAL IVP SCH (08:45)
[2017-01-27] MEDS: VITAMIN B COMP/VIT C/FOLIC ACID CAPSULE PO SCH (08:45)
[2017-01-27] MEDS: DOCUSATE SODIUM 100 MG CAPSULE PO SCH ×2 (08:45→21:17)
[2017-01-27] MEDS: INSULIN DETEMIR 100 UNITS/ML SQ SCH ×2 (08:54→21:29)
[2017-01-27 09:01] LABS: RBC MORPHOLOGY COMMENT ABNORMAL RBC MORPH
[2017-01-27 10:02] LABS: GLUCOSE COMMENT 1 Received Meds; GLUCOSE,POINT OF CARE 380 MG/DL (70-110)
[2017-01-27 10:06] LABS: GLUCOSE COMMENT 1 Received Meds; GLUCOSE,POINT OF CARE 411 MG/DL (70-110)
[2017-01-27 10:11] LABS: GLUCOSE COMMENT 1 Received Meds; GLUCOSE,POINT OF CARE 447 MG/DL (70-110)
[2017-01-27 10:11] LABS: GLUCOSE COMMENT 1 Received Meds; GLUCOSE,POINT OF CARE 393 MG/DL (70-110)
[2017-01-27 10:52] LABS: GLUCOSE,POINT OF CARE 384 MG/DL (70-110)
[2017-01-27 10:52] LABS: GLUCOSE COMMENT 1 Received Meds; GLUCOSE,POINT OF CARE 388 MG/DL (70-110)
[2017-01-27] MEDS ORDERED: SODIUM CHLORIDE 0.9% 500 ML IV ONE (18:13)
[2017-01-27] MEDS: ATORVASTATIN CALCIUM 40 MG TABLET PO SCH (21:17)
[2017-01-28] MEDS: PENICILLIN G POTASSIUM 3 MILUNITS in DEXTROSE 5%-WATER 50 ML IV SCH ×6 (02:30→17:33)
[2017-01-28 04:17] VITALS: BP 133/69
[2017-01-28] MEDS: INSULIN REGULAR, HUMAN 100 UNITS/ML SQ PRN ×4 (06:26→21:17)
[2017-01-28 06:35] LABS: BASOPHILS % (AUTO) 0.1 % (0.0-2.0); EOSINOPHILS % (AUTO) 1.6 % (1.0-6.0); HEMATOCRIT 32.8 % (41-53); HEMOGLOBIN 10.1 g/dL (13.5-17.5); LYMPHOCYTES # (AUTO) 2.9 K/uL (1.0-4.8); LYMPHOCYTES % (AUTO) 19.7 % (22.0-44.0); MEAN CORPUSCULAR HEMOGLOBIN 23.5 pg (26.0-34.0); MEAN CORPUSCULAR HGB CONC 30.8 G/dL (31.0-37.0); MEAN CORPUSCULAR VOLUME 76 fL (80-100); MONOCYTES # (AUTO) 0.5 K/uL (0.1-1.0); MONOCYTES % (AUTO) 3.6 % (2.0-9.0); NEUTROPHILS # (AUTO) 11.1 K/uL (1.8-7.7); PLATELET COUNT (AUTO) 458 K/uL (150-450); RED CELL DISTRIBUTION WIDTH 17.4 % (11.5-14.5); WHITE BLOOD COUNT (AUTO) 14.8 K/uL (4.5-11.0)
[2017-01-28 06:56] LABS: ANION GAP 5 mmol/L (8-16); CALCIUM, TOTAL 8.7 mg/dL (8.8-10.5); CARBON DIOXIDE 30 mmol/L (22-29); CHLORIDE 108 mmol/L (98-107); CREATININE 1.15 mg/dL (0.60-1.30); GLOMERULAR FILTR. RATE CALC > 60 mL/min (>60); POTASSIUM 4.1 mmol/L (3.5-5.1); SODIUM SERUM 143 mmol/L (136-145); UREA NITROGEN, BLOOD 25 mg/dL (7-18)
[2017-01-28 07:35] VITALS: BP 146/74
[2017-01-28 07:54] LABS: RBC MORPHOLOGY COMMENT ABNORMAL RBC MORPH
[2017-01-28 08:11] LABS: GLUCOSE COMMENT 1 Received Meds; GLUCOSE,POINT OF CARE 405 MG/DL (70-110)
[2017-01-28] MEDS: PANTOPRAZOLE SODIUM 40 MG/VIAL IVP SCH (08:20)
[2017-01-28] MEDS: DOCUSATE SODIUM 100 MG CAPSULE PO SCH ×2 (08:21→21:09)
[2017-01-28] MEDS: ASPIRIN 81 MG CHEWABLE TABLET PO SCH (08:21)
[2017-01-28] MEDS: HEPARIN SODIUM,PORCINE 5,000 UNITS/ML VIAL SQ SCH ×2 (08:22→21:09)
[2017-01-28] MEDS: VITAMIN B COMP/VIT C/FOLIC ACID CAPSULE PO SCH (08:25)
[2017-01-28] MEDS: INSULIN DETEMIR 100 UNITS/ML SQ SCH ×2 (08:28→21:10)
[2017-01-28] MEDS: MORPHINE SULFATE 2 MG/ML SYRINGE IVP PRN (08:38)
[2017-01-28 11:12] VITALS: BP 127/64
[2017-01-28 16:40] VITALS: BP 136/65
[2017-01-28 19:24] VITALS: BP 135/66
[2017-01-28] MEDS: ACETYLCYSTEINE 20% 200 MG/ML 4 ML ORAL SOLUTION PO SCH (21:09)
[2017-01-28] MEDS: ATORVASTATIN CALCIUM 40 MG TABLET PO SCH (21:09)
[2017-01-28 23:37] VITALS: BP 152/78
[2017-01-29] MEDS: PENICILLIN G POTASSIUM 3 MILUNITS in DEXTROSE 5%-WATER 50 ML IV SCH ×7 (00:02→23:49)
[2017-01-29 04:39] VITALS: BP 159/78
[2017-01-29] MEDS: INSULIN REGULAR, HUMAN 100 UNITS/ML SQ PRN ×3 (06:22→21:29)
[2017-01-29 06:23] LABS: BASOPHILS % (AUTO) 0.2 % (0.0-2.0); EOSINOPHILS % (AUTO) 1.7 % (1.0-6.0); HEMATOCRIT 32.7 % (41-53); HEMOGLOBIN 10.2 g/dL (13.5-17.5); LYMPHOCYTES # (AUTO) 2.7 K/uL (1.0-4.8); MEAN CORPUSCULAR HEMOGLOBIN 23.8 pg (26.0-34.0); MEAN CORPUSCULAR HGB CONC 31.1 G/dL (31.0-37.0); MEAN CORPUSCULAR VOLUME 76 fL (80-100); MONOCYTES # (AUTO) 0.6 K/uL (0.1-1.0); MONOCYTES % (AUTO) 4.5 % (2.0-9.0); NEUTROPHILS # (AUTO) 9.9 K/uL (1.8-7.7); NEUTROPHILS % (AUTO) 73.6 % (40.0-70.0); PLATELET COUNT (AUTO) 470 K/uL (150-450); RED BLOOD CELL COUNT(AUTO) 4.28 MIL/uL (4.50-5.90); RED CELL DISTRIBUTION WIDTH 17.2 % (11.5-14.5); WHITE BLOOD COUNT (AUTO) 13.5 K/uL (4.5-11.0)
[2017-01-29 06:30] LABS: HEMOGLOBIN A1C 8.9 % (4.5-6.2)
[2017-01-29 06:34] LABS: ANION GAP 6 mmol/L (8-16); CALCIUM, TOTAL 8.6 mg/dL (8.8-10.5); CARBON DIOXIDE 28 mmol/L (22-29); CHLORIDE 109 mmol/L (98-107); CREATININE 0.96 mg/dL (0.60-1.30); GLOMERULAR FILTR. RATE CALC > 60 mL/min (>60); PHOSPHORUS 2.7 mg/dL (2.5-4.9); POTASSIUM 4.2 mmol/L (3.5-5.1); SODIUM SERUM 143 mmol/L (136-145); UREA NITROGEN, BLOOD 20 mg/dL (7-18)
[2017-01-29 07:14] VITALS: BP 153/88
[2017-01-29 07:26] LABS: GLUCOSE COMMENT 1 Received Meds; GLUCOSE,POINT OF CARE 326 MG/DL (70-110)
[2017-01-29 07:26] LABS: GLUCOSE COMMENT 1 Received Meds; GLUCOSE,POINT OF CARE 409 MG/DL (70-110)
[2017-01-29 08:31] LABS: RBC MORPHOLOGY COMMENT ABNORMAL RBC MORPH
[2017-01-29] MEDS: ACETYLCYSTEINE 20% 200 MG/ML 4 ML ORAL SOLUTION PO SCH ×2 (09:00→21:25)
[2017-01-29] MEDS: INSULIN DETEMIR 100 UNITS/ML SQ SCH ×2 (09:00→21:28)
[2017-01-29] MEDS: DOCUSATE SODIUM 100 MG CAPSULE PO SCH ×2 (09:00→21:25)
[2017-01-29] MEDS: HEPARIN SODIUM,PORCINE 5,000 UNITS/ML VIAL SQ SCH ×2 (09:00→21:25)
[2017-01-29 09:31] LABS: GLUCOSE COMMENT 1 Received Meds; GLUCOSE,POINT OF CARE 245 MG/DL (70-110)
[2017-01-29] MEDS: PANTOPRAZOLE SODIUM 40 MG/VIAL IVP SCH (10:39)
[2017-01-29 11:18] VITALS: BP 135/69
[2017-01-29] MEDS: SILVER 45 ML GEL TP SCH (13:07)
[2017-01-29] MEDS ORDERED: GADOBUTROL 1 MMOL/ML 10 ML VIAL IVP ONE (13:22)
[2017-01-29 15:24] VITALS: BP 137/68
[2017-01-29] MEDS: ASPIRIN 81 MG CHEWABLE TABLET PO SCH (15:33)
[2017-01-29] MEDS: VITAMIN B COMP/VIT C/FOLIC ACID CAPSULE PO SCH (15:34)
[2017-01-29 19:43] VITALS: BP 137/81
[2017-01-29] MEDS: ATORVASTATIN CALCIUM 40 MG TABLET PO SCH (21:25)
[2017-01-29 23:49] VITALS: BP 151/83
[2017-01-30] MEDS: PENICILLIN G POTASSIUM 3 MILUNITS in DEXTROSE 5%-WATER 50 ML IV SCH ×2 (03:52→06:04)
[2017-01-30 04:28] VITALS: BP 154/80
[2017-01-30 04:57] LABS: GLUCOSE,POINT OF CARE 331 MG/DL (70-110)
[2017-01-30 04:57] LABS: GLUCOSE,POINT OF CARE 217 MG/DL (70-110)
[2017-01-30] MEDS: INSULIN REGULAR, HUMAN 100 UNITS/ML SQ PRN (06:09)
[2017-01-30 06:13] LABS: BASOPHILS % (AUTO) 0.1 % (0.0-2.0); EOSINOPHILS % (AUTO) 1.5 % (1.0-6.0); HEMATOCRIT 33.8 % (41-53); HEMOGLOBIN 10.4 g/dL (13.5-17.5); LYMPHOCYTES # (AUTO) 3.1 K/uL (1.0-4.8); LYMPHOCYTES % (AUTO) 22.5 % (22.0-44.0); MEAN CORPUSCULAR HEMOGLOBIN 23.8 pg (26.0-34.0); MEAN CORPUSCULAR HGB CONC 30.8 G/dL (31.0-37.0); MEAN CORPUSCULAR VOLUME 77 fL (80-100); MONOCYTES # (AUTO) 0.6 K/uL (0.1-1.0); MONOCYTES % (AUTO) 4.1 % (2.0-9.0); NEUTROPHILS # (AUTO) 9.9 K/uL (1.8-7.7); NEUTROPHILS % (AUTO) 71.8 % (40.0-70.0); PLATELET COUNT (AUTO) 479 K/uL (150-450); RED BLOOD CELL COUNT(AUTO) 4.37 MIL/uL (4.50-5.90); RED CELL DISTRIBUTION WIDTH 17.4 % (11.5-14.5); WHITE BLOOD COUNT (AUTO) 13.8 K/uL (4.5-11.0)
[2017-01-30 06:41] LABS: ANION GAP 6 mmol/L (8-16); CALCIUM, TOTAL 8.4 mg/dL (8.8-10.5); CARBON DIOXIDE 28 mmol/L (22-29); CHLORIDE 106 mmol/L (98-107); CREATININE 1.04 mg/dL (0.60-1.30); GLOMERULAR FILTR. RATE CALC > 60 mL/min (>60); POTASSIUM 4.4 mmol/L (3.5-5.1); SODIUM SERUM 140 mmol/L (136-145); UREA NITROGEN, BLOOD 20 mg/dL (7-18)
[2017-01-30 07:22] LABS: GLUCOSE COMMENT 1 Received Meds; GLUCOSE,POINT OF CARE 302 MG/DL (70-110)
[2017-01-30 07:27] LABS: GLUCOSE COMMENT 1 Received Meds; GLUCOSE,POINT OF CARE 276 MG/DL (70-110)
[2017-01-30 07:43] VITALS: BP 144/87
[2017-01-30 07:58] LABS: RBC MORPHOLOGY COMMENT ABNORMAL RBC MORPH
[2017-01-30] MEDS: INSULIN DETEMIR 100 UNITS/ML SQ SCH (09:12)
[2017-01-30] MEDS: HEPARIN SODIUM,PORCINE 5,000 UNITS/ML VIAL SQ SCH (09:13)
[2017-01-30] MEDS: VITAMIN B COMP/VIT C/FOLIC ACID CAPSULE PO SCH (09:13)
[2017-01-30] MEDS: PANTOPRAZOLE SODIUM 40 MG/VIAL IVP SCH (09:13)
[2017-01-30] MEDS: DOCUSATE SODIUM 100 MG CAPSULE PO SCH (09:13)
[2017-01-30] MEDS: SILVER 45 ML GEL TP SCH (09:13)
[2017-01-30] MEDS: ASPIRIN 81 MG CHEWABLE TABLET PO SCH (09:13)
[2017-01-30] MEDS ORDERED: MAGNESIUM SULFATE 3 GM in DEXTROSE 5%-WATER 100 ML IV ONE (11:00)
[2017-02-13 16:47] LABS: GLUCOSE COMMENT 1 Received Meds; GLUCOSE,POINT OF CARE 404 MG/DL (70-110)
[2017-02-13 16:48] LABS: GLUCOSE COMMENT 1 Received Meds; GLUCOSE,POINT OF CARE 347 MG/DL (70-110)
[2017-02-13 16:48] LABS: GLUCOSE COMMENT 1 Received Meds; GLUCOSE,POINT OF CARE 235 MG/DL (70-110)
[2017-02-13 16:48] LABS: GLUCOSE COMMENT 1 Received Meds; GLUCOSE,POINT OF CARE 316 MG/DL (70-110)
== END 2017-01-30 10:42 | disposition left against medical advice (07) | DRG 871 ==
LOC: EMS 12:26 → ICU 01-19 10:35 → 5N 01-27 16:14
PROVIDERS: ADMIT Internal Medicine; ATTEND Internal Medicine
PROC: 0T9B70Z Drainage of Bladder with Drainage Device, Via Natural or Artificial Opening (ICD-10-PCS; principal; 2017-01-19)
DX: A41.9 Sepsis, unspecified organism (principal); I21.4 Non-ST elevation (NSTEMI) myocardial infarction; E43 Unspecified severe protein-calorie malnutrition; J18.9 Pneumonia, unspecified organism; J96.00 Acute respiratory failure, unspecified whether with hypoxia or hypercapnia; N17.9 Acute kidney failure, unspecified; L97.429 Non-pressure chronic ulcer of left heel and midfoot with unspecified severity; E11.621 Type 2 diabetes mellitus with foot ulcer
CPT/HCPCS: 51702; 70450; 71250; 73723; 74000; 76770; 82570; 82805; 82962; 83036; 83605; 83735; 84100; 84145; 84156; 84300; 84540; 86140; 86160; 87040; 87081; 87147; 87804; 92526; 92610; 93005; 93306; 93970; 94640; 94644; 94660; 96365; 96366; 96367; 96368; 96375; 99291; A9585; C9113; J0131; J1170; J1644; J1885; J2270; J2540; J2543; J3370; J3475; J3490; J7030; J7040; J7050; J7060